=== PATIENT | female | born 1985 | race Caucasian/White ===

== ENCOUNTER 2016-04-13 15:17 | Emergency (ER) | payer OTHER ==
--- NOTE | 2016-04-13 15:47 | DIAGNOSTIC IMAGING REPORT ---
PROCEDURE: XR CHEST 2 VIEW INDICATION: SHORTNESS OF BREATH TECHNIQUE: PA and lateral views. COMPARISON: None. FINDINGS: Lungs are clear. Heart and mediastinum are normal. Normal variant pectus excavatum. Thorax is otherwise normal. IMPRESSION: 1. Negative chest.
--- NOTE | 2016-04-13 16:31 | ED ORDER SUMMARY ---
..... Patient: KAMILLA ATKINSON OrderSheet [facility] VisitID: [id number] [address] [place] [address] 30y, F Registration Date/Time: 04/13/2016 ORDER SHEET Weight: 68.0 kg (stated) Allergies: No Known Drug Allergy GENERAL ORDERS: Chest 2V Urgent (15:25 04/13/2016 Pierre JON) (15:34 LWhalen R.N.) MEDICATION ORDERS: Ativan PO 2 mg (HIGH ALERT MEDICATION, NOW) (15:28 04/13/2016 Pierre JON) (15:33 LWhalen R.N.) IV FLUIDS: ORDER SHEET NOTES: [Electronically signed by Kev Zhang R.N. (18:36 04/13/2016)] [Electronically signed by Rahel Moe MD (21:36 04/15/2016)] [Electronically locked/signed by Kev Zhang R.N. (18:36 04/13/2016)]
--- NOTE | 2016-04-13 16:31 | ED CLINICAL REPORT ---
Clinical Report - Physicians/Mid Levels [facility] [address] [place] [address] 04/13/2016 15:18 Patient: KAMILLA ATKINSON Time Seen: 15:21. Arrived- By private vehicle. Historian- patient. HISTORY OF PRESENT ILLNESS Chief Complaint: DYSPNEA and WHEEZING and anxiety. This started today and is still present but is better now. The dyspnea is described as moderate. No cough, sputum production, orthopnea or chest pain or discomfort. See nurses notes for current asthma threapy. Asthma triggers: unknown. (Pt states she has had a URI, and began to feel panicked after a coughing episode. She states she used an inhaler belonging to another family member, and that this helped a little. Pt states she still feels anxious.). Similar symptoms previously: Occasionally. Recent medical care: Not recently seen/assessed. REVIEW OF SYSTEMS No sore throat, sinus drainage, muscle aches, headache or palpitations. No calf pain, nausea, abdominal pain, diarrhea or black stools. No difficulty with urination, skin rash, enlarged lymph nodes, pedal edema or vomiting. No bloody stools or joint pain. The patient has had a nasal discharge and fever. Denies current . All systems otherwise negative, except as recorded above. PAST HISTORY Problems: no known problems. Additional Surgeries: no known surgeries. Medications: None. Allergies: No Known Drug Allergy. SOCIAL HISTORY Never smoker. No alcohol use or drug use. ADDITIONAL NOTES The nursing notes have been reviewed. PHYSICAL EXAM Vital Signs: 04/13/2016 15:22 BP: 151/86. HR: 132. RR: 20. O2 saturation: 100%. Temp: 97.5 F. Have been reviewed. Appearance: Alert. Patient in mild distress. Distress appears due to anxiety. Eyes: Pupils equal, round and reactive to light. Eyes normal inspection. ENT: Nose normal. Neck: Normal inspection. CVS: Normal heart rate and rhythm. Heart sounds normal. Pulses normal. Respiratory: No respiratory distress. Breath sounds normal. Abdomen: Soft and nontender. Back: Normal inspection. Skin: Skin warm and dry. Normal skin color. No rash. Normal skin turgor. Extremities: Extremities exhibit normal ROM. No lower extremity edema. Neuro: Oriented X 3. No motor deficit. No sensory deficit. LABS, X-RAYS, AND EKG Chest X-ray: No acute disease. Normal lung markings present. Normal heart size. Mediastinum normal. Great vessels normal. Soft tissues normal. No infiltrate. No fracture. No bony lesion present. Views: PA and lateral. Technique: good. The X-rays were independently viewed by me, interpreted by the radiologist and contemporaneously by me and discussed with the radiologist. Prior films were not available for comparison. Pulse Oximetry: 04/13/2016 15:22 O2 saturation: 100%. (FIO2 - room air). Interpretation: normal. PROGRESS AND PROCEDURES Course of Care: PT's lungs were clear, and her oxygen saturation was high. Pt was anxious, but calmed considerably over the course of our conversation. I did evaluate her with a CXR, which was unremarkable. She had neither risk factors for nor sx of DVT. Pt was doing much better after a dose of Ativan, and I felt she was stable for d/c home. Patient counseled in person regarding the patient's stable condition, test results, diagnosis and need for follow-up. Concerns were addressed. Old medical records reviewed. Disposition: Discharged. Condition: stable and improved. CLINICAL IMPRESSION Acute viral (presumed) upper respiratory infection. Anxiety reaction with hyperventilation. INSTRUCTIONS (Your x-ray looks great, and your lungs are completely clear.). Warnings: SEDATIVE MEDICATION: You were given sedative medication during your visit. Do not drive or operate dangerous machinery for 6 hours. GENERAL WARNINGS: Return or contact your physician immediately if your condition worsens or changes unexpectedly, if not improving as expected, or if other problems arise. Follow-up: Follow up with your doctor as needed. Understanding of the discharge instructions verbalized by patient. (Electronically signed by Rahel Moe MD 04/15/2016 21:36)
--- NOTE | 2016-04-13 16:31 | ED NURSING NOTES ---
Clinical Report - Nurses [facility] [address] [place] [address] 04/13/2016 15:18 [id number] Triage time 15:Apr 13 2016. Acuity: LEVEL 3. Chief Complaint: SHORTNESS OF BREATH, DIFFICULTY BREATHING and WHEEZING. ELMO COMA SCORE: [place] Coma Scale: 15- eyes open spontaneously (4); best verbal response- oriented x 4 (5); best motor response- obeys commands (6). --15:28 Kev Zhang R.N. 15:22 04/13/16. BP: 151/86. HR: 132. RR: 20. O2 saturation: 100%. Temp: 97.5 F. Pain level now 5/10. --15:28 Kev Zhang R.N. Weight: 68 kg stated. Height/Length: 60 inches Per Patient. BMI: 29.3. --15:26 Kev Zhang R.N. Medications None. --16:34 Kev Zhang R.N. Allergies No Known Drug Allergy. --16:34 Kev Zhang R.N. History Arrived by private vehicle. Historian: patient. Accompanied by family. This started just prior to arrival. She has had fever, a cough and wheezing. No chills, chest pain or back pain. Treatment NEW PATIENT ESCORT: (proair). PAST MEDICAL HX: No history of asthma, chronic obstructive pulmonary disease, congestive heart failure, diabetes mellitus or hypertension. Immunizations: up-to-date. Last normal menstrual period was 2 weeks ago- weeks ago. SOCIAL HX: Never smoker. No alcohol use or drug use. No infectious disease exposure. SELF HARM ASSESSMENT: A self harm assessment was performed. The patient answered "no" to the question "Have you recently felt down, depressed, or hopeless?" and "Do you have thoughts of harming or killing yourself?". FALL RISK ASSESSMENT: Fall risk assessment completed. No fall risk identified. NUTRITIONAL RISK ASSESSMENT: The nutritional risk assessment revealed no deficiencies. FUNCTIONAL ASSESSMENT: Functional assessment: no impairments noted. LEARNING NEEDS ASSESSMENT: The learning needs assessment revealed no barriers. ABUSE ASSESSMENT: Abuse assessment: (yes) The patient was asked "Do you feel safe in your home?". SKIN INTEGRITY ASSESSMENT: Skin integrity risk assessment completed. No skin integrity risk identified. --15:28 Kev Zhang R.N. PROBLEMS: no known problems. ADDITIONAL SURGERIES: no known surgeries. Interventions ID band on patient. --15:28 Kev Zhang R.N. PHYSICAL ASSESSMENT To room via wheelchair. GENERAL / NEURO / PSYCH: Alert. Oriented X 4. Appears anxious and in distress. HEENT: Mucous membranes are pink. RESPIRATORY: Mild respiratory distress. The patient can speak in full sentences. Cough. Breath sounds within normal limits. CVS: Normal sinus rhythm noted. Capillary refill less than 2 seconds. GI / : Abdomen soft and nontender. Bowel sounds within normal limits. ( last bm yesterday). SKIN: Skin is warm and dry. Normal skin turgor. --15:30 Kev Zhang R.N. NURSING PROGRESS NOTES Oxygen administered by nasal cannula at 2 liters. Pulse oximeter and NIBP monitor placed on patient. Head of bed elevated (90). Reassurance given. Call light placed in reach. Side rails up x 1. Bed placed in lowest position. Brakes of bed on. --15:31 Kev Zhang R.N. 15:33 04/13/2016 Ativan (LORazepam) PO Capsules 2 mg given. Allergies verified, confirmed 5 rights and sedative warning given to the patient. --15:34 Kev Zhang R.N. DISPOSITION / DISCHARGE Departure time: 16:33 Apr 13 2016. Condition at departure: improved. No learning barriers present. Discharge instructions provided and reviewed with the patient. Reviewed warnings. Reviewed medication(s). Treatments reviewed. Reviewed referrals. Patient verbalized understanding. Written instructions provided in Spanish. The patient was discharged home and accompanied by spouse. She left the Emergency Department ambulatory and via private vehicle. Spouse driving. --16:33 Kev Zhang R.N. 16:33 04/13/16. BP: 146/80. HR: 109. RR: 20. O2 saturation: 97%. Temp: 98.4 F. Pain level now 0/10. --16:33 Kev Zhang R.N. Locked/Released at 04/13/2016 18:36 by Kev Zhang R.N.
--- NOTE | 2016-04-13 16:31 | ED ORDER SUMMARY ---
..... Patient: KAMILLA ATKINSON OrderSheet [facility] VisitID: [id number] [address] [place] [address] 30y, F Registration Date/Time: 04/13/2016 ORDER SHEET Weight: 68.0 kg (stated) Allergies: No Known Drug Allergy GENERAL ORDERS: Chest 2V Urgent (15:25 04/13/2016 Pierre JON) (15:34 LWhalen R.N.) MEDICATION ORDERS: Ativan PO 2 mg (HIGH ALERT MEDICATION, NOW) (15:28 04/13/2016 Pierre JON) (15:33 LWhalen R.N.) IV FLUIDS: ORDER SHEET NOTES: [Electronically signed by Kev Zhang R.N. (18:36 04/13/2016)] [Electronically signed by Rahel Moe MD (21:36 04/15/2016)] [Electronically locked/signed by Kev Zhang R.N. (18:36 04/13/2016)]
--- NOTE | 2016-04-13 16:31 | ED NURSING NOTES ---
Clinical Report - Nurses [facility] [address] [place] [address] 04/13/2016 15:18 [id number] Triage time 15:Apr 13 2016. Acuity: LEVEL 3. Chief Complaint: SHORTNESS OF BREATH, DIFFICULTY BREATHING and WHEEZING. ELMO COMA SCORE: [place] Coma Scale: 15- eyes open spontaneously (4); best verbal response- oriented x 4 (5); best motor response- obeys commands (6). --15:28 Kev Zhang R.N. 15:22 04/13/16. BP: 151/86. HR: 132. RR: 20. O2 saturation: 100%. Temp: 97.5 F. Pain level now 5/10. --15:28 Kev Zhang R.N. Weight: 68 kg stated. Height/Length: 60 inches Per Patient. BMI: 29.3. --15:26 Kev Zhang R.N. Medications None. --16:34 Kev Zhang R.N. Allergies No Known Drug Allergy. --16:34 Kev Zhang R.N. History Arrived by private vehicle. Historian: patient. Accompanied by family. This started just prior to arrival. She has had fever, a cough and wheezing. No chills, chest pain or back pain. Treatment SOFTWARE CONFIGURATION SPECIALIST: (proair). PAST MEDICAL HX: No history of asthma, chronic obstructive pulmonary disease, congestive heart failure, diabetes mellitus or hypertension. Immunizations: up-to-date. Last normal menstrual period was 2 weeks ago- weeks ago. SOCIAL HX: Never smoker. No alcohol use or drug use. No infectious disease exposure. SELF HARM ASSESSMENT: A self harm assessment was performed. The patient answered "no" to the question "Have you recently felt down, depressed, or hopeless?" and "Do you have thoughts of harming or killing yourself?". FALL RISK ASSESSMENT: Fall risk assessment completed. No fall risk identified. NUTRITIONAL RISK ASSESSMENT: The nutritional risk assessment revealed no deficiencies. FUNCTIONAL ASSESSMENT: Functional assessment: no impairments noted. LEARNING NEEDS ASSESSMENT: The learning needs assessment revealed no barriers. ABUSE ASSESSMENT: Abuse assessment: (yes) The patient was asked "Do you feel safe in your home?". SKIN INTEGRITY ASSESSMENT: Skin integrity risk assessment completed. No skin integrity risk identified. --15:28 Kev Zhang R.N. PROBLEMS: no known problems. ADDITIONAL SURGERIES: no known surgeries. Interventions ID band on patient. --15:28 Kev Zhang R.N. PHYSICAL ASSESSMENT To room via wheelchair. GENERAL / NEURO / PSYCH: Alert. Oriented X 4. Appears anxious and in distress. HEENT: Mucous membranes are pink. RESPIRATORY: Mild respiratory distress. The patient can speak in full sentences. Cough. Breath sounds within normal limits. CVS: Normal sinus rhythm noted. Capillary refill less than 2 seconds. GI / : Abdomen soft and nontender. Bowel sounds within normal limits. ( last bm yesterday). SKIN: Skin is warm and dry. Normal skin turgor. --15:30 Kev Zhang R.N. NURSING PROGRESS NOTES Oxygen administered by nasal cannula at 2 liters. Pulse oximeter and NIBP monitor placed on patient. Head of bed elevated (90). Reassurance given. Call light placed in reach. Side rails up x 1. Bed placed in lowest position. Brakes of bed on. --15:31 Kev Zhang R.N. 15:33 04/13/2016 Ativan (LORazepam) PO Capsules 2 mg given. Allergies verified, confirmed 5 rights and sedative warning given to the patient. --15:34 Kev Zhang R.N. DISPOSITION / DISCHARGE Departure time: 16:33 Apr 13 2016. Condition at departure: improved. No learning barriers present. Discharge instructions provided and reviewed with the patient. Reviewed warnings. Reviewed medication(s). Treatments reviewed. Reviewed referrals. Patient verbalized understanding. Written instructions provided in Icelandic. The patient was discharged home and accompanied by spouse. She left the Emergency Department ambulatory and via private vehicle. Spouse driving. --16:33 Kev Zhang R.N. 16:33 04/13/16. BP: 146/80. HR: 109. RR: 20. O2 saturation: 97%. Temp: 98.4 F. Pain level now 0/10. --16:33 Kev Zhang R.N. Locked/Released at 04/13/2016 18:36 by Kev Zhang R.N.
--- NOTE | 2016-04-15 21:37 | ED MED RECONCILIATION SUMMARY ---
Patient: KAMILLA ATKINSON Medication Reconciliation Report [facility] VisitID: [id number] [address] [place] [address] 30y, F Registration Date/Time: 04/13/2016 Weight: 68.0 kg Height/Length: 60 in. BMI: 29.3 ALLERGIES: No Known Drug Allergy The patient's Home Medications are listed below: NONE. The source(s) of the original Home Medication information: Not obtained. The following Medications were given to the patient in the Emergency Department: Ativan [PO] PO 2 mg, administered: 04/13/2016 3:33:00 PM The following Medications were prescribed to the patient: None.
--- NOTE | 2016-04-15 21:37 | ED MAR SUMMARY ---
..... Medication Administration Record [facility] [address] [place] [address] Patient: KAMILLA ATKINSON Visit ID: [id number] 30y, F Weight: 68.0 kg Height/Length: 60 in BMI: 29.3 ALLERGIES: No Known Drug Allergy Given 15:33 04/13/2016 Kev Zhang R.N. Medication Administered: ATIVAN [PO] (LORAZEPAM), Dose: 2 mg Capsules PO. Medication Ordered: Ativan PO 2 mg (HIGH ALERT MEDICATION, NOW).
--- NOTE | 2016-04-15 21:37 | ED DISCHARGE INSTRUCTIONS ---
Patient: KAMILLA ATKINSON General Instructions [facility] VisitID: [id number] [place] [address] 30y, F Registration Date/Time: 04/13/2016 Acute viral (presumed) upper respiratory infection. Anxiety reaction with hyperventilation. INSTRUCTIONS (Your x-ray looks great, and your lungs are completely clear.). Warnings: SEDATIVE MEDICATION: You were given sedative medication during your visit. Do not drive or operate dangerous machinery for 6 hours. GENERAL WARNINGS: Return or contact your physician immediately if your condition worsens or changes unexpectedly, if not improving as expected, or if other problems arise. Follow-up: Follow up with your doctor as needed. Understanding of the discharge instructions verbalized by patient. ADDITIONAL INFORMATION Viral Respiratory Illness [Adult] You have an Upper Respiratory Illness (URI) caused by a virus. This illness is contagious during the first few days. It is spread through the air by coughing and sneezing or by direct contact (touching the sick person and then touching your own eyes, nose or mouth). Most viral illnesses go away within 7-10 days with rest and simple home remedies. Sometimes, the illness may last for several weeks. Antibiotics will not kill a virus and are generally not prescribed for this condition. Home Care: 1) If symptoms are severe, rest at home for the first 2-3 days. When you resume activity, don't let yourself get too tired. 2) Avoid being exposed to cigarette smoke (yours or others). 3) Tylenol (acetaminophen) or ibuprofen (Advil, Motrin) will help fever, muscle aching and headache. (Persons under 18 with fever should not take aspirin since this may cause liver damage.) 4) Your appetite may be poor, so a light diet is fine. Avoid dehydration by drinking 6-8 glasses of fluids per day (water, soft drinks, juices, tea, soup). Extra fluids will help loosen secretions in the nose and lungs. 5) [id number] cold medicines will not shorten the length of time youre sick, but they may be helpful for the following symptoms: cough (Robitussin DM); sore throat (Chloraseptic lozenges or spray); nasal and sinus congestion (Actifed, Sudafed, Chlortrimeton). Follow Up with your doctor or as advised if you dont improve over the next week. Get Prompt Medical Attention if any of the following occur: -- Cough with lots of colored sputum (mucus) or blood in your sputum -- Chest pain, shortness of breath, wheezing or have trouble breathing -- Severe headache; face, neck or ear pain -- Fever over 100.4 F (38.0 C) for more than three days -- You cant swallow due to throat pain Stress Reaction Anxiety is the feeling we all get when we think something bad might happen. It is a normal response to stress and usually causes only a mild reaction. When anxiety becomes more severe, emotions may interfere with daily life. In some cases, you may not even be aware of what it is youre anxious about! During an anxiety reaction, you may feel like you are helpless, nervous, depressed or irritable. Your body may show signs of anxiety in many ways. You may experience dry mouth, shakiness, dizziness, weakness, trouble breathing, chest pressure, headache, nausea, diarrhea, tiredness, inability to sleep or sexual problems. Home Care: 1) Try to locate the sources of stress in your life. They may not be obvious! These may include: -- Daily hassles of life which pile up (traffic jams, missed appointments, car troubles, etc.) -- Major life changes, both good (new baby, job promotion) and bad (loss of job, loss of loved one) -- Overload: feeling that you have too many responsibilities and can't take care of all of them at once -- Feeling helpless, feeling that your problems are beyond what youre able to solve 2) Notice how your body reacts to stress. Learn to listen to your body signals. This will help you take action before the stress becomes severe. 3) When you can, do something about the source of your stress. (Avoid hassles, limit the amount of change that happens in your life at one time and take a break when you feel overloaded). 4) Unfortunately, many stressful situations cannot be avoided. It is necessary to learn HOW TO MANAGE STRESS better. There are many proven methods that will reduce your anxiety. These include simple things like exercise, good nutrition and adequate rest. Also, there are certain techniques that are helpful: relaxation and breathing exercises, visualization, biofeedback and meditation. For more information about this, consult your doctor or go to a local bookstore and review the many books and tapes available on this subject. Follow Up If you feel that your anxiety is not responding to self-help measures, contact your doctor or make an appointment with a counselor. Get Prompt Medical Attention if any of the following occur: -- Your symptoms get worse -- Chest pain or trouble breathing -- Severe headache not relieved by rest and mild pain reliever -- Rapid or irregular heartbeat, fainting You have been given the following additional information: Uri, Viral, No Abx (Adult) Anxiety Reaction (Electronically signed by Rahel Moe MD 04/15/2016 21:36)
--- NOTE | 2016-04-15 21:37 | ED MAR SUMMARY ---
..... Medication Administration Record [facility] [address] [place] [address] Patient: KAMILLA ATKINSON Visit ID: [id number] 30y, F Weight: 68.0 kg Height/Length: 60 in BMI: 29.3 ALLERGIES: No Known Drug Allergy Given 15:33 04/13/2016 Kev Zhang R.N. Medication Administered: ATIVAN [PO] (LORAZEPAM), Dose: 2 mg Capsules PO. Medication Ordered: Ativan PO 2 mg (HIGH ALERT MEDICATION, NOW).
--- NOTE | 2016-04-15 21:37 | ED MED RECONCILIATION SUMMARY ---
Patient: KAMILLA ATKINSON Medication Reconciliation Report [facility] VisitID: [id number] [address] [place] [address] 30y, F Registration Date/Time: 04/13/2016 Weight: 68.0 kg Height/Length: 60 in. BMI: 29.3 ALLERGIES: No Known Drug Allergy The patient's Home Medications are listed below: NONE. The source(s) of the original Home Medication information: Not obtained. The following Medications were given to the patient in the Emergency Department: Ativan [PO] PO 2 mg, administered: 04/13/2016 3:33:00 PM The following Medications were prescribed to the patient: None.
== END 2016-04-13 16:30 | disposition home or self-care (01) ==
LOC: ED SRH 15:17
DX: F41.1 Generalized anxiety disorder (principal); R06.4 Hyperventilation; J06.9 Acute upper respiratory infection, unspecified